=== PATIENT | female | born 1975 | race Asian ===

== ENCOUNTER 2022-12-06 11:56 | Emergency (ER) | payer BC, OTHER ==
[~2022-12-06] VITALS: Ht 157.5 cm; Wt 53.4 kg
[2022-12-06 14:33] LABS: BASO % 0.3 % (0.0-1.0); EOS # 0.1 10^3/uL (0.0-0.5); EOS % 1.3 % (0.0-3.0); HEMATOCRIT 40.9 % (36.0-47.0); HEMOGLOBIN 13.8 g/dl (12.0-15.5); LYMPH # 1.7 10^3/uL (1.5-5.0); LYMPH % 26.6 % (24.0-44.0); MEAN CORPUSCULAR HEMOGLOBIN 31.3 pg (27.0-33.0); MEAN CORPUSCULAR HGB CONC 33.7 g/dl (32.0-36.5); MEAN CORPUSCULAR VOLUME 92.7 fl (80.0-96.0); MONO # 0.4 10^3/uL (0.0-0.8); MONO % 6.7 % (2.0-8.0); NEUTROPHILS % 64.6 % (36.0-66.0); PLATELET COUNT, AUTOMATED 125 10^3/uL (150-450); RED BLOOD COUNT 4.41 10^6/uL (4.00-5.40); WHITE BLOOD COUNT 6.3 10^3/uL (4.0-10.0)
[2022-12-06] MEDS ORDERED: NS 1,000 ML IV ONE (16:20)
[2022-12-06 17:00] LABS: BLOOD UREA NITROGEN 20 MG/DL (9-23); CALCIUM LEVEL 9.8 MG/DL (8.5-10.1); CARBON DIOXIDE LEVEL 24 MMOL/L (20-31); CHLORIDE LEVEL 106 MMOL/L (98-107); CREATININE FOR GFR 0.61 MG/DL (0.55-1.30); GLOMERULAR FILTRATION RATE > 60.0 (>58); GLUCOSE, FASTING 76 MG/DL (60-100); POTASSIUM SERUM 3.6 MMOL/L (3.5-5.1); SODIUM LEVEL 139 MMOL/L (136-145)
[2022-12-06 17:01] LABS: HCG, SERUM QUALITATIVE NEGATIVE (NEGATIVE)
[2022-12-06] MEDS ORDERED: NORV5TAB PO (18:37)
[2022-12-06 19:03] VITALS: BP 153/101; TEMP 97.4; O2SAT 99
== END 2022-12-06 19:05 | disposition home or self-care (01) ==
LOC: M ED 11:56
DX: N93.8 Other specified abnormal uterine and vaginal bleeding (principal); D25.9 Leiomyoma of uterus, unspecified; I10 Essential (primary) hypertension; N83.202 Unspecified ovarian cyst, left side; Z79.899 Other long term (current) drug therapy